=== PATIENT | female | born 1955 ===

== ENCOUNTER 2024-10-26 10:11 | Outpatient (CLI) | payer MEDICARE, SELFPAY ==
--- NOTE | 2024-10-26 10:15 | XR_ITS ---
WS: [id number] PA chest in inspiration and expiration, 10/26/2024 Clinical Data: UNSPECIFIED ATRIAL FIBRILLATION Comparison: None. Findings: No mediastinal shift or pneumothorax is seen. No nodules, masses or effusions are present. The diaphragms are flattened. The heart is normal. The aortic arch shows mild tortuosity. There is a levoscoliosis of the thoracic spine. XR/XR chest 3V [id number] Impression: 1. No pneumothorax or mediastinal shift on expiration or inspiration. 2. Atherosclerosis and hyperinflation.
== END 2024-10-26 10:12 | disposition home or self-care (01) ==
LOC: RAD 10:12
PROVIDERS: PCP Nurse Practitioner Family; Visit Provider Nurse Practitioner Family
DX: I48.91 Unspecified atrial fibrillation (principal); I70.90 Unspecified atherosclerosis; R91.8 Other nonspecific abnormal finding of lung field; R93.89 Abnormal findings on diagnostic imaging of other specified body structures; M41.84 Other forms of scoliosis, thoracic region
CPT/HCPCS: 71047